=== PATIENT | male | born 1940 | race Asian ===

== ENCOUNTER → 2018-05-26 | Outpatient (CLI) | payer MEDICARE, BC ==
[2018-05-26 09:04] LABS: HCT 48.2 % (39.0-53.0); HGB 14.2 gm/dL (13.0-17.5); Hypochromasia Marked; MCHC 29.5 g/dL (31.0-37.0); MCV 71.2 fL (80.0-100.0); Mean Platelet Volume 6.2; Microcytosis Moderate; Platelet Count 170 k/uL (150-450); RBC 6.77 m/uL (4.30-5.90); WBC 6.6 k/uL (3.8-10.6)
[2018-05-26 09:19] LABS: Albumin 3.9 g/dL (3.5-5.0); Calcium 9.2 mg/dL (8.4-10.2); Potassium 3.9 mmol/L (3.5-5.1); Total Bilirubin 1.2 mg/dL (0.2-1.3); Total Protein 6.9 g/dL (6.3-8.2)
== END | disposition home or self-care (01) ==
LOC: LABWHC1 08:06
PROVIDERS: ATTEND Internal Medicine
DX: E78.2 Mixed hyperlipidemia (principal)
CPT/HCPCS: 36415; 80053; 80061; 82550; 84443; 85027

== ENCOUNTER → 2018-05-31 | Outpatient (CLI) | payer MEDICARE, BC ==
--- NOTE | 2018-05-31 12:14 | P.STRESS ---
- Stress Test Note Stress Test Results/Findings: Exam Performed: stress echo exercise Exam Date: 05/31/18 Reason for Exam: Chest Pain Height: 5 ft 4 in Weight: 62.596 kg Protocol: Stress Echo Stage: III Duration of Exercise: 8:35 Resting Heart Rate: 56 Resting Blood Pressure: 113/89 Maximum Achieved Heart Rate: 114 Maximum Achieved Blood Pressure: 149/76 85% PMHR: 119 100% PMHR: 140 METS: 10.1 Technologist Comment: Stress Test Results/Findings: This is a 78-year-old male with history of hypertension, family history, being evaluated for chest pain. Stress data: Baseline EKG showed sinus rhythm with normal MI interval and QRS duration. Blood pressure at rest is 113, O2 sat 89 with pulse rate of 56. Patient walked on the Delfino protocol for 8 minutes and 35 seconds achieving a maximum heart rate of 114 with a blood pressure of 149/76. Patient did not express any chest pain. EKGs taken during and after exercise did not reveal any changes to suggest ischemia. Final impression: #1. Negative stress test #2 patient did not express any chest pain #3. No arrhythmias are the detected.
--- NOTE | 2018-05-31 12:17 | P.STRESS ---
- Stress Test Note Stress Test Results/Findings: Exam Performed: stress echo exercise Exam Date: 05/31/18 Reason for Exam: Chest Pain Height: 5 ft 4 in Weight: 62.596 kg Protocol: Stress Echo Stage: III Duration of Exercise: 8:35 Resting Heart Rate: 56 Resting Blood Pressure: 113/89 Maximum Achieved Heart Rate: 114 Maximum Achieved Blood Pressure: 149/76 85% PMHR: 119 100% PMHR: 140 METS: 10.1 Technologist Comment: Stress Test Results/Findings: This is a 51-year-old female with history of COPD being evaluated for symptoms of chest pain. Patient EKG showed sinus rhythm with normal ND interval and QRS duration with mild nonspecific ST-T changes. Blood pressure at rest is on a 20 75, pulse rate of 76. Patient woke on the Delfino protocol for about 6 minutes and 17 seconds achieving a maximal heart rate of 157 with blood pressure 120/ 79. EKGs taken during and after exercise did not reveal any changes to suggest ischemia. Echo data: Baseline echo images showed normal wall motion and thickening. Exercise echo images showed augmentation of wall motion and thickening in all the segments. Final impression: #1. Negative stress test #2. Negative stress echo.
== END | disposition home or self-care (01) ==
LOC: RADNMMAIN 10:10
PROVIDERS: ATTEND Internal Medicine
DX: I25.10 Atherosclerotic heart disease of native coronary artery without angina pectoris (principal)
CPT/HCPCS: 93017

== ENCOUNTER → 2019-01-27 | Outpatient (CLI) | payer MEDICARE, BC ==
--- NOTE | 2019-01-27 14:53 | XR ---
EXAM TYPE: LUMBAR SPINE X RAY SERIES COMPARISON: NONE HISTORY: Pain TECHNIQUE: 4 views are submitted. FINDINGS: Alignment is anatomic. The pedicles are intact. The transverse processes are intact. There is no s pondylolysis or spondylolisthesis. Hypertrophic change of the vertebral, multilevel degenerative dis c disease and facet arthropathy. Vascular calcifications noted. IMPRESSION: 1. Multilevel degenerative disc disease and facet arthropathy.
== END ==
LOC: RADXRMAIN 14:26
PROVIDERS: ATTEND Family Medicine
DX: M51.36 Other intervertebral disc degeneration, lumbar region (principal); M46.96 Unspecified inflammatory spondylopathy, lumbar region
CPT/HCPCS: 72100

== ENCOUNTER → 2019-03-24 | Outpatient (CLI) | payer MEDICARE, BC ==
--- NOTE | 2019-03-24 11:21 | XR ---
EXAMINATION TYPE: XR chest 2V DATE OF EXAM: 03/24/2019 COMPARISON: NONE TECHNIQUE: PA and lateral views submitted. HISTORY: Cough FINDINGS: The lungs are clear and there is no pneumothorax, pleural effusion, or focal pneumonia. Hypertrophi c and degenerative change of the spine. Arthropathy of the shoulders. No overt failure. There is ecta jeannine of the thoracic aorta. IMPRESSION: 1. No acute process. There is ectasia of the thoracic aorta. If there is concern for aneurysm correla te with CT scan of the chest.
== END | disposition home or self-care (01) ==
LOC: RADXRMAIN 11:04
PROVIDERS: ATTEND Family Medicine
DX: I77.810 Thoracic aortic ectasia (principal); I72.9 Aneurysm of unspecified site
CPT/HCPCS: 71046

== ENCOUNTER → 2020-12-13 | Outpatient (CLI) | payer MEDICARE, BC ==
--- NOTE | 2020-12-13 15:45 | XR ---
EXAMINATION TYPE: XR chest 2V DATE OF EXAM: 12/13/2020 COMPARISON: Chest x-ray 03/24/2019 HISTORY: R05 TECHNIQUE: Frontal and lateral views of the chest are obtained. FINDINGS: There is no focal air space opacity, pleural effusion, or pneumothorax seen. The cardiac silhouette size is within normal limits. Aorta is tortuous and dense, possibly aneurysmal. There are coronary artery calcifications. The osseous structures are intact, there is thoracic spondylosis. IMPRESSION: No acute cardiopulmonary process. Possible aortic aneurysm, coronary artery disease
== END | disposition home or self-care (01) ==
LOC: RADXRMAIN 09:33
PROVIDERS: ATTEND Internal Medicine Geriatric Medicine
DX: R05 Cough (principal)
CPT/HCPCS: 71046

== ENCOUNTER → 2020-12-25 | Outpatient (CLI) | payer MEDICARE ==
--- NOTE | 2020-12-25 14:03 | CT ---
EXAMINATION TYPE: CT chest wo con DATE OF EXAM: 12/25/2020 COMPARISON: Chest x-ray 12 days ago HISTORY: cough CT DLP: 187.4 mGycm. Automated Exposure Control for Dose Reduction was Utilized. TECHNIQUE: CT scan of the thorax is performed without IV contrast. FINDINGS: LUNGS: Eventrated anterior aspect right hemidiaphragm. Mild chronic parenchymal changes throughout t he lower lungs. No suspicious focal consolidation or groundglass opacity. No concerning pulmonary mas ses. There is no pleural effusion or pneumothorax seen. The tracheobronchial tree is patent. MEDIASTINUM: Lack of IV contrast is noted to limit evaluation for mediastinal and especially hilar ad enopathy. There are no definitive greater than 1 cm hilar or mediastinal lymph nodes. No cardiomega ly or pericardial effusion is seen. Severe three-vessel coronary artery calcification. Heart size upp er limits of normal. Prominent right pulmonary artery, CT findings suggesting underlying pulmonary hy pertension. Ectatic course to the thoracic aorta. OTHER: Few scattered colonic diverticula. [id number] multilevel spurring in the thoracic spine. Some cortical thinning visualized portion of both kidneys. IMPRESSION: Chronic changes without acute pulmonary process.
== END | disposition home or self-care (01) ==
LOC: RADCTMAIN 12:28
PROVIDERS: ATTEND Internal Medicine Geriatric Medicine
DX: J98.4 Other disorders of lung (principal)
CPT/HCPCS: 71250